=== PATIENT | female | born 1965 | race Caucasian/White ===

== ENCOUNTER 2018-04-20 08:19 | Day surgery (SDC) ==
[2018-04-20] MEDS ORDERED: LIDOCAINE 1% 20 ML MDV ID STA (08:39)
[2018-04-20 08:46] VITALS: TEMP 98.3
[2018-04-20] MEDS ORDERED: VERSED ONE (09:27)
[2018-04-20] MEDS ORDERED: SUBLIMAZE ONE (09:27)
[2018-04-20] MEDS ORDERED: DIPRIVAN 20 ML VIAL IVP ONE (09:27)
[2018-04-20 11:40] VITALS: BP 112/78
--- NOTE | 2018-04-21 09:59 | OP ---
PROCEDURE: COLONOSCOPY TO THE CECUM. ENDOSCOPIST: Camron COLEMAN M.D. INDICATION: HISTORY OF POLYPS. INSTRUMENT: [id number]. MEDICATION: PER ANESTHESIA. PROCEDURE: The patient was positioned for colonoscopy. The digital rectal exam was negative. The colonoscope was inserted through the anus and advanced to the cecum. The cecum was identified using the ileocecal valve and the appendiceal orifice as landmarks. The scope was slowly withdrawn through an adequately prepped colon. [place] Bowel Prep Score = 9. Scattered diverticular disease in the left colon. Retroflex exam otherwise normal. Withdrawal time 10 minutes and 2 seconds. PLAN: 1. Repeat colonoscopy in 5 years. CC: VINNIE GARRIDO
== END 2018-04-20 10:45 | disposition home or self-care (01) ==
LOC: SURG 08:19
PROVIDERS: ATTEND Internal Medicine Gastroenterology
DX: Z86.010 Personal history of colon polyps (principal)